=== PATIENT | male | born 1985 | race Caucasian/White ===

== ENCOUNTER 2023-01-20 09:59 | Outpatient (CLI) | payer BC, SELFPAY ==
[2023-01-20 11:28] LABS: Alanine Aminotransferase 52 U/L (6-50); Albumin Level 4.6 g/dL (3.5-5.1); Alkaline Phosphatase 62 U/L (38-126); Anion Gap 7 mmol/L (8-16); Aspartate Amino Transferase 42 U/L (17-59); Bilirubin,Total 0.5 mg/dL (0.2-1.3); Blood Urea Nitrogen 17 mg/dL (9-20); Calcium 9.4 mg/dL (8.4-10.2); Carbon Dioxide 27 mmol/L (22-30); Chloride 103 mmol/L (98-107); Cholesterol 211 mg/dL (0-200); Estimated Glomerular Filt Rate > 60; Glucose 105 mg/dL (65-110); HDL Direct 32 mg/dL; Potassium 4.6 mmol/L (3.4-5.0); Sodium 137 mmol/L (137-145); Triglycerides 130 mg/dL (<150)
[2023-01-20 11:36] LABS: Free T4 Free Thyroxine 1.16 ng/mL (0.78-2.19); Vitamin D 25 Hydroxy 46.6 ng/mL
[2023-01-20 11:45] LABS: LDL Cholesterol Direct 129 mg/dL
[2023-01-20 11:50] LABS: Hemoglobin A1C 5.4 % (<5.7); Thyroid Stimulating Hormone 0.736 uIU/mL (0.465-4.680)
== END 2023-01-20 10:00 | disposition home or self-care (01) ==
LOC: ANHGOSHLAB 10:02
PROVIDERS: PCP Family Medicine; Visit Provider Family Medicine
DX: R53.83 Other fatigue (principal); R73.9 Hyperglycemia, unspecified; E78.5 Hyperlipidemia, unspecified; I10 Essential (primary) hypertension; E55.9 Vitamin D deficiency, unspecified
CPT/HCPCS: 36415; 80053; 80061; 82306; 83036; 84439; 84443

== ENCOUNTER 2023-03-28 09:46 | Outpatient (CLI) | payer BC, SELFPAY ==
--- NOTE | 2023-04-26 18:52 | WPDHOMESLEEP ---
Sleep Study - Home Unattended Date of Study: 03/28/23 Ordering Provider: Esperanza Sahu DO Interpreting Provider: Esperanza Sahu DO Home Sleep Study Type: Watch PAT Height: 1.8 m Weight: 136.078 kg Body Mass Index: 41.8 Neck Circumference (inches): 18 Jewell: 6 Reason for Sleep Study Snoring, Nocturnal gasping Sleep History The patient is a 38-year-old male with hypertension, ADHD and hypogonadism that had a sleep study ordered for evaluation of sleep apnea. The patient did not complete the sleep intake forms so I am unable to comment on his sleep history. [facility] Past Medical History Medical History ADHD Hypertension Surgical History Surgical History Hx of cholecystectomy Social History Social History Smoking status: Never smoker Tobacco type: cigars Alcohol intake: former Substance use: never Lack of Transportation: No Lack of Food: Never True Current Housing: I Have Housing Concerned About Future Housing: No Difficulty Paying Gas/Electric Bills: No Difficulty Paying for Meds: No Currently Unemployed: YES Education: Trade/Vocational Certificate Difficulty w/ Childcare or Family Care: No Living arrangements: with family Occupation/Education: occupation Gender identity (if verbalized by the patient): Male Medications Home Medications Medication Instructions Recorded Confirmed Type lisinopril 20 mg tablet 20 mg PO DAILY #30 tabs 12/08/22 04/21/23 Rx testosterone cypionate 100 mg/mL 50 mg IM WEEKLY 01/20/23 04/21/23 History intramuscular oil (Depo-Testosterone) alcohol swabs 1 pad topical .COMPLEX #100 ea 02/09/23 04/21/23 Rx bupropion HCl 150 mg 24 hr tablet, 150 mg PO QAM #90 tabs 04/25/23 Rx extended release dextroamphetamine-amphetamine 30 30 mg PO DAILY #30 tabs 04/25/23 04/25/23 Rx mg tablet (Adderall) Sleep Procedure The sleep study was completed using WatchPAT a technically adequate device with seven channels: peripheral arterial tone, actigraphy, body position, snore, respiratory movement, pulse oximetry, sleep staging, and heart rate. Prior to using the device, the patient received verbal and written instructions for its application and was provided with the help desk phone number for additional telephonic instruction with 24-hour availability of qualified personnel to answer questions. The study was scored using [facility] guidelines. Sleep Architecture The patient had a total recording time of 6 hours 11 minutes and a total sleep time of 5 hours 19 minutes. The sleep efficiency was 85.8%. The sleep latency was 42 minutes and the REM latency was 84 minutes. The patient had 3 awakenings. The patient spent 63.03% of total sleep time in light sleep, 17.86% of total sleep time in deep sleep and 19.11% of total sleep time in REM sleep. The patient spent 267.5 minutes, 83.8% of total sleep time in the supine position. Respiratory Analysis The patient had an overall AHI of 9.5 and a central apnea index of 0.6. The REM AHI was 13.2. Juwan Durán respirations were not seen. Oximetry Data The patient had an average oxygen saturation of 95% with a minimum of 83% and a maximum of 99%. The patient had 36 desaturations that were 4% or greater, resulting in an oxygen desaturation index of 7.1. The patient had 34 desaturations between 4-9% and 2 desaturations between 10-20%. The patient spent 0.1 minutes of total sleep time with an oxygen saturation below 88%. Snoring Profile Snoring was present intermittently throughout the study. Cardiac Profile The average pulse was 62 beats per minute with a minimum of 42 beats per minute. Assessment and Plan Assessment and Plan (1) CHARLENE (obstructive sleep apnea): Code(s): G47.33 - Obstructive sleep apnea (adult) (pediatric) Status:
[2023-04-26 18:57] VITALS: BMI 41.8
== END 2023-04-25 08:00 | disposition home or self-care (01) ==
LOC: ANHCSM 09:48
PROVIDERS: PCP Family Medicine; Visit Provider Family Medicine
DX: G47.9 Sleep disorder, unspecified (principal); G47.33 Obstructive sleep apnea (adult) (pediatric)
CPT/HCPCS: 95800

== ENCOUNTER 2024-05-10 09:31 | Outpatient (CLI) | payer BC, SELFPAY ==
--- NOTE | ~2024-05-10 | US_ITS ---
Abdominal Sonogram: Real-time sonographic imaging of the abdomen was performed. Clinical History: Liver disease COMPARISON: 12/14/2018 Findings: The liver appears normal with no evidence of bile duct dilatation. 1.1 cm hyperechoic lesi on in the liver is most likely a small hemangioma. Main portal vein demonstrates normal direction of flow. The spleen is normal in size without evidence of focal lesion. The gallbladder is absent, comp atible prior cholecystectomy. The common bile duct measures 4 mm. The visualized pancreas, aorta, an d IVC are unremarkable. The right kidney measures 14.3 cm in length and the left kidney measures 14. 0 cm. There is no hydronephrosis or renal calculus. Impression: 1.1 cm hyperechoic liver lesion is most likely small hemangioma, and is stable from prior exam. Reviewed, dictated and finalized at [facility]. [facility] Impression: 1.1 cm hyperechoic liver lesion is most likely small hemangioma, and is stable from prior exam.
== END 2024-05-10 09:32 | disposition home or self-care (01) ==
LOC: MICIMG 09:33
PROVIDERS: PCP Family Medicine; Visit Provider Emergency Medicine
DX: K76.9 Liver disease, unspecified (principal)
CPT/HCPCS: 76700